=== PATIENT | male | born 1950 | race Caucasian/White ===

== ENCOUNTER 2022-06-06 06:05 | Day surgery (SDC) | payer MEDICARE ==
[2022-06-05 12:50] LABS: BASOPHILS # (AUTO) 0.1 X10'3 (0-0.2); BASOPHILS % (AUTO) 0.9 % (0-1); EOSINOPHILS # (AUTO) 0.1 X10'3 (0-0.9); EOSINOPHILS % (AUTO) 1.3 % (0-6); HEMATOCRIT 45.6 % (42.0-52.0); HEMOGLOBIN 15.9 g/dl (14.0-17.9); LYMPHOCYTES # (AUTO) 1.1 X10'3 (1.1-4.8); LYMPHOCYTES % (AUTO) 13.3 % (21-51); MEAN CORPUSCULAR HEMOGLOBIN 32.1 PG (27.0-31.0); MEAN CORPUSCULAR VOLUME 91.8 FL (78-98); MEAN PLATELET VOLUME 8.1 FL (7.4-10.4); MONOCYTES # (AUTO) 0.6 X10'3 (0-0.9); MONOCYTES % (AUTO) 7.3 % (2-12); NEUTROPHILS # (AUTO) 6.1 X10'3 (1.8-7.7); NEUTROPHILS % (AUTO) 77.2 % (42-75); PLATELET COUNT 257 X10'3 (140-440); RED BLOOD COUNT 4.97 X10'6 (4.70-6.10); RED CELL DISTRIBUTION WIDTH 13.1 % (11.5-14.5); WHITE BLOOD COUNT 7.9 X10'3 (4.5-11.0)
[2022-06-05 12:57] LABS: ALBUMIN 3.9 G/DL (3.4-5.0); ANION GAP 9 (8-16); BLOOD UREA NITROGEN 14 MG/DL (7-18); BUN/CREATININE RATIO 14.7 (5.4-32.0); CALCIUM 9.3 MG/DL (8.5-10.1); CHLORIDE 106 MMOL/L (99-107); CREATININE 0.95 MG/DL (0.60-1.10); GLUCOSE 93 MG/DL (70-104); POTASSIUM 3.9 MMOL/L (3.5-5.1); SODIUM 144 MMOL/L (135-145); TOTAL CARBON DIOXIDE 29.2 MMOL/L (24-32); eGFR 78 ML/MIN
[2022-06-05 13:01] LABS: APTT 27 SECONDS (22-32)
[~2022-06-06] VITALS: Ht 182.9 cm; Wt 81.1 kg
[2022-06-06] VITALS (12 sets, daily range): BP systolic 98–139; BP diastolic 63–99
[2022-06-06] MEDS ORDERED: CARB1TAB42 PO (06:37)
[2022-06-06] MEDS ORDERED: LOTE5DRO9 OP (06:37)
[2022-06-06] MEDS ORDERED: APIX5TAB3 PO (06:37)
[2022-06-06] MEDS ORDERED: BROM3DRO OP (06:37)
[2022-06-06] MEDS ORDERED: LOSA25TA41 PO (06:37)
[2022-06-06] MEDS ORDERED: VITA1CAP PO (06:37)
[2022-06-06] MEDS ORDERED: POLOS OP (06:37)
[2022-06-06] MEDS ORDERED: FINA5TAB11 PO (06:37)
[2022-06-06] MEDS ORDERED: CARB-395 PO (06:37)
[2022-06-06] MEDS ORDERED: fentaNYL/PF 50MCG/1 ML 2ML syringe ONE ×2 (07:28→09:28)
[2022-06-06] MEDS ORDERED: verapamil 2.5 mg/ml inj IV ONE (07:28)
[2022-06-06] MEDS ORDERED: heparin 1,000unit/ml 10ml vial 10 ML ONE (07:28)
[2022-06-06] MEDS ORDERED: nitroGLYCERIN-Tridil 50MG/D5W 250 ML IV ONE (07:28)
[2022-06-06] MEDS ORDERED: midazolam 1 mg/ML 2ml injection ONE (07:28)
[2022-06-06] MEDS ORDERED: iohexol 350MG/ML 100ml bottle IV ONE ×3 (07:28→08:59)
[2022-06-06] MEDS ORDERED: LIDOcaine 1%/PF 5ML 10 MG/ML VIAL ONE ×2 (07:28→08:41)
[2022-06-06 09:16] LABS: ISTAT HGB ART 14.6 g/dl (14.0-18.0); ISTAT Hct ART 43 %PCV (42-52); ISTAT O2 SATURATION ARTERIAL 91 % (95-98); ISTAT SOURCE ART
--- NOTE | 2022-06-06 15:05 | NUR ---
Gave report to Nun[place] RIDLEY, transferred care. Patient stable, VSS. Plan to discharge at 1600.
[2022-06-07 06:26] LABS: ISTAT Hct MIX 43 %PCV (42-52); ISTAT O2 SATURATION MIX VENOUS 69 % (60-80); ISTAT SOURCE VEN
== END 2022-06-06 16:00 | disposition home or self-care (01) ==
LOC: SSTAY O 06:05
PROVIDERS: ATTEND Internal Medicine Cardiovascular Disease
DX: R94.39 Abnormal result of other cardiovascular function study (principal); I25.10 Atherosclerotic heart disease of native coronary artery without angina pectoris; I35.0 Nonrheumatic aortic (valve) stenosis; I48.0 Paroxysmal atrial fibrillation; I10 Essential (primary) hypertension; Z98.890 Other specified postprocedural states; Z90.49 Acquired absence of other specified parts of digestive tract; Z79.899 Other long term (current) drug therapy; G20 Parkinson's disease; F32.9 Major depressive disorder, single episode, unspecified; Z79.82 Long term (current) use of aspirin; F41.9 Anxiety disorder, unspecified; Z88.8 Allergy status to other drugs, medicaments and biological substances; Z88.1 Allergy status to other antibiotic agents; Z87.442 Personal history of urinary calculi
CPT/HCPCS: 36415; 76937; 80048; 82803; 85014; 85025; 85610; 85730; 93005; 93460; 93567; 99152; 99153; C1751; C1760; C1769; C1894; J1644; J2250; J3010; J3490; J7030; Q9967; A4620; A5120; A6258; A6402

== ENCOUNTER 2022-10-16 08:02 | Day surgery (SDC) | payer MEDICARE ==
[2022-10-15 13:00] LABS: BASOPHILS % (AUTO) 0.5 % (0-1); EOSINOPHILS # (AUTO) 0.1 X10'3 (0-0.9); EOSINOPHILS % (AUTO) 2.2 % (0-6); HEMATOCRIT 47.7 % (42.0-52.0); HEMOGLOBIN 15.9 g/dl (14.0-17.9); LYMPHOCYTES # (AUTO) 1.2 X10'3 (1.1-4.8); LYMPHOCYTES % (AUTO) 19.6 % (21-51); MEAN CORPUSCULAR HEMOGLOBIN 31.3 PG (27.0-31.0); MEAN CORPUSCULAR HGB CONC 33.4 g/dL (33.0-36.5); MEAN CORPUSCULAR VOLUME 93.8 FL (78-98); MEAN PLATELET VOLUME 8.3 FL (7.4-10.4); MONOCYTES # (AUTO) 0.5 X10'3 (0-0.9); MONOCYTES % (AUTO) 8.6 % (2-12); NEUTROPHILS # (AUTO) 4.2 X10'3 (1.8-7.7); NEUTROPHILS % (AUTO) 69.1 % (42-75); PLATELET COUNT 243 X10'3 (140-440); RED BLOOD COUNT 5.09 X10'6 (4.70-6.10); RED CELL DISTRIBUTION WIDTH 13.4 % (11.5-14.5); WHITE BLOOD COUNT 6.1 X10'3 (4.5-11.0)
[2022-10-15 13:09] LABS: ALBUMIN 3.6 G/DL (3.4-5.0); ANION GAP 3 (8-16); BLOOD UREA NITROGEN 14 MG/DL (7-18); BUN/CREATININE RATIO 14.3 (5.4-32.0); CALCIUM 8.9 MG/DL (8.5-10.1); CHLORIDE 104 MMOL/L (99-107); CREATININE 0.98 MG/DL (0.60-1.10); GLUCOSE 87 MG/DL (70-104); POTASSIUM 4.4 MMOL/L (3.5-5.1); SODIUM 137 MMOL/L (135-145); TOTAL CARBON DIOXIDE 29.7 MMOL/L (24-32); eGFR 75 ML/MIN
[~2022-10-16] VITALS: Ht 182.9 cm; Wt 83.4 kg
[2022-10-16] VITALS (15 sets, daily range): BP systolic 91–152; BP diastolic 59–108
[~2022-10-16 08:02] MED LIST: APIX5TAB3 PO; BROM3DRO OP; CARB-395 PO; CARB1TAB42 PO; FINA5TAB11 PO; LOSA25TA41 PO; LOTE5DRO9 OP; POLOS OP; VITA1CAP PO
[2022-10-16] MEDS ORDERED: MIDAZolam 1mg/ml 10ml vial IV ONE (08:15)
[2022-10-16] MEDS ORDERED: morphine 10mg/ml inj. IV ONE (08:15)
[2022-10-16] MEDS ORDERED: LORazepam 0.5 MG tablet PO ONE (08:15)
[2022-10-16] MEDS ORDERED: atropine 0.1mg/ml 10ml syringe IV ONE (08:15)
[2022-10-16] MEDS ORDERED: amiodarone 150mg/dext, iso-os 100 ML IV ONE (08:15)
[2022-10-16] MEDS ORDERED: diphenhydrAMINE 25mg capsule PO ONE (08:20)
[2022-10-16] MEDS ORDERED: SOTA80TA PO (08:54)
[2022-10-16] MEDS ORDERED: ondansetron/PF 4mg/2ml inj IV ONE (12:30)
[2022-10-16] MEDS ORDERED: ondansetron/PF 4mg/2ml inj ONE (12:31)
== END 2022-10-16 13:40 | disposition home or self-care (01) ==
LOC: SSTAY O 08:02
PROVIDERS: ATTEND Internal Medicine Cardiovascular Disease
DX: I48.19 Other persistent atrial fibrillation (principal); I35.0 Nonrheumatic aortic (valve) stenosis; I10 Essential (primary) hypertension; G20 Parkinson's disease; F41.9 Anxiety disorder, unspecified; F32.9 Major depressive disorder, single episode, unspecified; Z87.442 Personal history of urinary calculi; Z98.890 Other specified postprocedural states; Z79.899 Other long term (current) drug therapy; I25.10 Atherosclerotic heart disease of native coronary artery without angina pectoris; Z88.1 Allergy status to other antibiotic agents; Z88.8 Allergy status to other drugs, medicaments and biological substances
CPT/HCPCS: 36415; 80048; 85025; 85610; 92960; 93005; J2250; J2274; J2405; J7030; A4620

== ENCOUNTER 2023-12-03 06:14 | Day surgery (SDC) | payer MEDICARE ==
[2023-12-02 15:22] LABS: BASOPHILS % (AUTO) 0.3 % (0-1); EOSINOPHILS # (AUTO) 0.1 X10'3 (0-0.9); EOSINOPHILS % (AUTO) 1.8 % (0-6); HEMATOCRIT 45.2 % (42.0-52.0); HEMOGLOBIN 15.2 g/dl (14.0-17.9); LYMPHOCYTES % (AUTO) 14.6 % (21-51); MEAN CORPUSCULAR HEMOGLOBIN 31.5 PG (27.0-31.0); MEAN CORPUSCULAR HGB CONC 33.7 g/dL (33.0-36.5); MEAN CORPUSCULAR VOLUME 93.7 FL (78-98); MEAN PLATELET VOLUME 7.8 FL (7.4-10.4); MONOCYTES # (AUTO) 0.5 X10'3 (0-0.9); MONOCYTES % (AUTO) 6.5 % (2-12); NEUTROPHILS # (AUTO) 5.5 X10'3 (1.8-7.7); NEUTROPHILS % (AUTO) 76.8 % (42-75); PLATELET COUNT 237 X10'3 (140-440); RED BLOOD COUNT 4.82 X10'6 (4.70-6.10); RED CELL DISTRIBUTION WIDTH 13.6 % (11.5-14.5); WHITE BLOOD COUNT 7.1 X10'3 (4.5-11.0)
[2023-12-02 15:28] LABS: ALBUMIN 3.5 G/DL (3.4-5.0); ANION GAP 5 (8-16); BLOOD UREA NITROGEN 17 MG/DL (7-18); BUN/CREATININE RATIO 12.4 (10.0-20.0); CALCIUM 9.1 MG/DL (8.5-10.1); CHLORIDE 109 MMOL/L (99-107); CREATININE 1.37 MG/DL (0.60-1.10); GLUCOSE 90 MG/DL (70-104); POTASSIUM 4.7 MMOL/L (3.5-5.1); SODIUM 145 MMOL/L (135-145); TOTAL CARBON DIOXIDE 30.9 MMOL/L (24-32); eGFR 51 ML/MIN
[2023-12-02 15:35] LABS: APTT 27 SECONDS (22-32); INR 1.1 INR; PROTHROMBIN TIME 11.5 SECONDS (9.0-12.0)
[2023-12-03] VITALS (14 sets, daily range): BP systolic 118–160; BP diastolic 70–89; PULSE 60; RESP 14–16; TEMP 98; O2SAT 95–99
[~2023-12-03] VITALS: Ht 182.9 cm; Wt 78.8 kg
[~2023-12-03 06:14] MED LIST changes: -BROM3DRO OP; +DOCU100C40 PO; -LOSA25TA41 PO; -LOTE5DRO9 OP; -POLOS OP; +SENN-263 PO; +SOTA80TA PO; +VITA-268 PO; -VITA1CAP PO
[2023-12-03] MEDS ORDERED: DULO30CA52 PO (06:38)
[2023-12-03] MEDS: sodium bicarbonate 1meq/ml syr 150 ML in dextrose 5%-water 1,000 ML IV SCH (07:13)
[2023-12-03] MEDS: diphenhydrAMINE 25mg capsule PO PRN (07:13)
[2023-12-03] MEDS: acetylcysteine 200 MG/ml 4ml vial PO PRN (07:13)
[2023-12-03] MEDS: LORazepam 0.5 MG tablet PO PRN (07:13)
[2023-12-03] MEDS: normal saline 1,000 ML IV SCH (07:13)
[2023-12-03] MEDS ORDERED: iohexol 350 MG/ML 50ML vial IV ONE (07:34)
[2023-12-03] MEDS ORDERED: midazolam 1 mg/ML 2ml injection ONE (07:34)
[2023-12-03] MEDS ORDERED: fentaNYL/PF 50MCG/1 ML 2ML syringe ONE (07:34)
[2023-12-03] MEDS ORDERED: heparin 1,000unit/ml 10ml vial 10 ML ONE (07:34)
[2023-12-03] MEDS ORDERED: LIDOcaine 1% 30ml preserv. free vial ONE (07:34)
[2023-12-03] MEDS ORDERED: iohexol 350MG/ML 100ml bottle IV ONE (07:34)
[2023-12-03] MEDS ORDERED: nitroGLYCERIN 500mcg/5mL D5W 5 ML IV ONE (07:35)
[2023-12-03 12:49] LABS: ISTAT HGB MIX 12.6 g/dl (14.0-17.9); ISTAT Hct MIX 37 %PCV (42-52); ISTAT O2 SATURATION MIX VENOUS 73 % (60-80); ISTAT SOURCE VEN
[2023-12-03 12:49] LABS: ISTAT HGB MIX 14.3 g/dl (14.0-17.9); ISTAT Hct MIX 42 %PCV (42-52); ISTAT O2 SATURATION MIX VENOUS 93 % (60-80); ISTAT SOURCE BLNK
== END 2023-12-03 15:00 | disposition home or self-care (01) ==
LOC: SSTAY O 06:14
PROVIDERS: ATTEND Internal Medicine Cardiovascular Disease
DX: I35.0 Nonrheumatic aortic (valve) stenosis (principal); I25.10 Atherosclerotic heart disease of native coronary artery without angina pectoris; I10 Essential (primary) hypertension; G89.29 Other chronic pain; F41.9 Anxiety disorder, unspecified; N40.0 Benign prostatic hyperplasia without lower urinary tract symptoms; F32.A Depression, unspecified; G20.A1 Parkinson's disease without dyskinesia, without mention of fluctuations; I48.0 Paroxysmal atrial fibrillation; Z98.890 Other specified postprocedural states; Z90.49 Acquired absence of other specified parts of digestive tract; Z79.899 Other long term (current) drug therapy; Z79.01 Long term (current) use of anticoagulants; Z88.1 Allergy status to other antibiotic agents; Z88.8 Allergy status to other drugs, medicaments and biological substances
CPT/HCPCS: 36415; 76937; 80048; 82803; 85014; 85025; 85610; 85730; 93005; 93460; 99152; 99153; J1644; J2250; J3010; J3490; J7030; J7070; Q0163; Q9967; A6258; C1725; C1751; C1769

== ENCOUNTER 2024-01-14 09:49 | Outpatient (CLI) | payer MEDICARE ==
[~2024-01-14 09:49] MED LIST changes: -DOCU100C40 PO; +DULO30CA52 PO; -SENN-263 PO
[2024-01-14 10:21] LABS: BASOPHILS % (AUTO) 0.3 % (0-1); EOSINOPHILS # (AUTO) 0.2 X10'3 (0-0.9); EOSINOPHILS % (AUTO) 2.3 % (0-6); HEMATOCRIT 46.4 % (42.0-52.0); HEMOGLOBIN 15.9 g/dl (14.0-17.9); LYMPHOCYTES # (AUTO) 1.2 X10'3 (1.1-4.8); LYMPHOCYTES % (AUTO) 14.2 % (21-51); MEAN CORPUSCULAR HEMOGLOBIN 32.2 PG (27.0-31.0); MEAN CORPUSCULAR HGB CONC 34.3 g/dL (33.0-36.5); MEAN PLATELET VOLUME 7.8 FL (7.4-10.4); MONOCYTES # (AUTO) 0.6 X10'3 (0-0.9); MONOCYTES % (AUTO) 7.2 % (2-12); NEUTROPHILS # (AUTO) 6.4 X10'3 (1.8-7.7); PLATELET COUNT 255 X10'3 (140-440); RED BLOOD COUNT 4.94 X10'6 (4.70-6.10); RED CELL DISTRIBUTION WIDTH 13.7 % (11.5-14.5); WHITE BLOOD COUNT 8.5 X10'3 (4.5-11.0)
[2024-01-14 10:32] LABS: APTT 30 SECONDS (22-32); INR 1.1 INR; PROTHROMBIN TIME 11.9 SECONDS (9.0-12.0)
[2024-01-14 10:45] LABS: ALBUMIN 3.6 G/DL (3.4-5.0); ALKALINE PHOSPHATASE 100 IU/L (46-116); ANION GAP 3 (8-16); ASPARTATE AMINO TRANSFERASE 15 U/L (10-37); BILIRUBIN,TOTAL 0.9 MG/DL (0.1-1.0); BLOOD UREA NITROGEN 18 MG/DL (7-18); BUN/CREATININE RATIO 18.4 (10.0-20.0); CALCIUM 9.1 MG/DL (8.5-10.1); CHLORIDE 108 MMOL/L (99-107); CREATININE 0.98 MG/DL (0.60-1.10); GLUCOSE 69 MG/DL (70-104); POTASSIUM 4.4 MMOL/L (3.5-5.1); SODIUM 144 MMOL/L (135-145); TOTAL PROTEIN 7.3 G/DL (6.4-8.2); eGFR 75 ML/MIN
[2024-01-14 10:50] LABS: PRO BRAIN NATRIURETIC PEPTIDE 2301 PG/ML (0-125)
[2024-01-14 11:03] LABS: ALANINE AMINOTRANSFERASE < 6 U/L (12-78)
[2024-01-14] MEDS ORDERED: IODIXANOL 320 MG/ML INFUS..BTL 100ML IV ONE (11:28)
== END 2024-01-14 23:59 | disposition home or self-care (01) ==
LOC: RAD 09:49
PROVIDERS: ATTEND Internal Medicine Cardiovascular Disease
DX: R91.1 Solitary pulmonary nodule (principal); J90 Pleural effusion, not elsewhere classified; I35.0 Nonrheumatic aortic (valve) stenosis; R06.02 Shortness of breath; I65.29 Occlusion and stenosis of unspecified carotid artery; Z95.0 Presence of cardiac pacemaker
CPT/HCPCS: 36415; 71046; 71275; 74174; 75572; 80053; 83880; 85025; 85610; 85730; 93880; 94010; 94727; 94729; J3490; Q9967

== ENCOUNTER 2024-07-27 22:15 | Inpatient (IN) | payer MEDICARE ==
[~2024-07-27] VITALS: Ht 182.9 cm; Wt 75.9 kg
[~2024-07-27 22:15] MED LIST changes: -CARB-395 PO; +[UNRECOGNIZED DRUG - CODE] PO
[2024-07-27 23:07] LABS: BASOPHILS % (AUTO) 0.1 % (0-1); EOSINOPHILS # (AUTO) 0.1 X10'3 (0-0.9); EOSINOPHILS % (AUTO) 0.7 % (0-6); HEMOGLOBIN 15.7 g/dl (14.0-17.9); LYMPHOCYTES # (AUTO) 0.7 X10'3 (1.1-4.8); LYMPHOCYTES % (AUTO) 7.2 % (21-51); MEAN CORPUSCULAR HGB CONC 34.1 g/dL (33.0-36.5); MEAN CORPUSCULAR VOLUME 93.6 FL (78-98); MEAN PLATELET VOLUME 8.1 FL (7.4-10.4); MONOCYTES # (AUTO) 0.5 X10'3 (0-0.9); NEUTROPHILS # (AUTO) 8.4 X10'3 (1.8-7.7); PLATELET COUNT 194 X10'3 (140-440); RED BLOOD COUNT 4.91 X10'6 (4.70-6.10); RED CELL DISTRIBUTION WIDTH 14.3 % (11.5-14.5); WHITE BLOOD COUNT 9.6 X10'3 (4.5-11.0)
[2024-07-27 23:20] LABS: ALANINE AMINOTRANSFERASE 10 U/L (12-78); ALBUMIN 3.7 G/DL (3.4-5.0); ALKALINE PHOSPHATASE 110 IU/L (46-116); ANION GAP 5 (8-16); ASPARTATE AMINO TRANSFERASE 16 U/L (10-37); BILIRUBIN,TOTAL 1.7 MG/DL (0.1-1.0); BLOOD UREA NITROGEN 24 MG/DL (7-18); BUN/CREATININE RATIO 19.5 (10.0-20.0); CALCIUM 9.5 MG/DL (8.5-10.1); CHLORIDE 104 MMOL/L (99-107); CREATININE 1.23 MG/DL (0.60-1.10); GLUCOSE 129 MG/DL (70-104); LIPASE 22 U/L (16-77); POTASSIUM 4.2 MMOL/L (3.5-5.1); SODIUM 139 MMOL/L (135-145); TOTAL CARBON DIOXIDE 29.9 MMOL/L (24-32); TOTAL PROTEIN 7.5 G/DL (6.4-8.2); eCRCL 56 ML/MIN; eGFR 57 ML/MIN
[2024-07-28] MEDS ORDERED: iohexol 350MG/ML 100ml bottle IV ONE (00:12)
[2024-07-28] MEDS: fentaNYL/PF 50MCG/1 ML 2ML syringe IV ONE (00:34)
[2024-07-28] MEDS: ondansetron/PF 4mg/2ml inj IV ONE (00:34)
[2024-07-28] MEDS: normal saline 1000ml 1,000 ML IV ONE (00:34)
[2024-07-28] MEDS: morphine 4 MG/ML inj SYRINge IV ONE (02:10)
[2024-07-28] MEDS ORDERED: morphine 2 MG/ML inj. syringe IV PRN (03:00)
[2024-07-28] MEDS ORDERED: HYDROmorphone inj. 0.5 MG/0.5 ML DISP.SYRIN IV PRN (03:00)
[2024-07-28] MEDS ORDERED: potassium Cl 40MEQ/1/2NS 520ml 520 ML IV PRN (03:00)
[2024-07-28] MEDS ORDERED: mag hydrox/Alum hydrox/simeth 30ml oral suspension PO PRN (03:00)
[2024-07-28] MEDS ORDERED: magnesium Cl slow-release 64mg tablet PO PRN (03:00)
[2024-07-28] MEDS ORDERED: potassium Cl 20 mEq SR tablet PO PRN ×2 (03:00)
[2024-07-28] MEDS ORDERED: magnesium hydroxide 30ml (MOM) UD suspension PO PRN (03:00)
[2024-07-28] MEDS ORDERED: ondansetron/PF 4mg/2ml inj IV PRN (03:00)
[2024-07-28] MEDS ORDERED: magnesium sulf-water 2g/50mL 50 ML IV PRN (03:00)
[2024-07-28] MEDS ORDERED: magnesium sulf-water 4G/100mL 100 ML IV PRN (03:00)
[2024-07-28] MEDS ORDERED: acetaminophen 325mg tablet PO PRN (03:00)
[2024-07-28 03:52] LABS: MAGNESIUM 1.9 MG/DL (1.5-2.4); POTASSIUM 4.3 MMOL/L (3.5-5.1)
[2024-07-28 03:53] LABS: APTT 27 SECONDS (22-32); INR 1.1 INR; PROTHROMBIN TIME 11.7 SECONDS (9.0-12.0)
[2024-07-28] MEDS: normal saline 1000ml 1,000 ML IV SCH (04:09)
[2024-07-28 05:50] LABS: BILIRUBIN,URINE NEGATIVE (Neg); CLARITY,URINE CLEAR (Clear); COLOR,URINE YELLOW (Yellow); GLUCOSE, URINE NEGATIVE (Neg); KETONES,URINE TRACE mg/dl (Neg); LEUKOCYTE ESTERASE ,URINE NEGATIVE (Neg); NITRITES, URINE NEGATIVE (Neg); OCCULT BLOOD,URINE NEGATIVE (Neg); PH,URINE 5.5 (4.8-8.0); PROTEIN,URINE NEGATIVE (Neg); UROBILINOGEN,URINE 0.2 E.U/dL (0.2-1.0)
[2024-07-28 05:51] LABS: UA COLLECTION TYPE CLN CATCH MIDSTREAM
[2024-07-28] MEDS: K and/or MAG REPLACEMENT MC SCH (07:09)
[2024-07-28] MEDS: docusate sod 100mg capsule PO SCH (07:10)
[2024-07-28] MEDS: CefTRIAXone/D5W-Rocephin 1gm 50 ML IV SCH (07:28)
[2024-07-28] MEDS: LidoCAINE 2% Topical Jelly 11mL syringe (UROJET) MM ONE (09:10)
[2024-07-28 11:00] VITALS: RESP 16; O2SAT 95
[2024-07-28 22:00] VITALS: BP 136/89; PULSE 84; RESP 16; TEMP 98.4; O2SAT 98
[2024-07-28] MEDS: diatr meglu/diatrizoate 30ml oral sol.-(3 dose) bottle PO SCH (23:00)
[2024-07-29] VITALS (7 sets, daily range): BP systolic 126–163; BP diastolic 83–106; PULSE 75–76; RESP 14–20; TEMP 97.8–98.3; O2SAT 95–98
[2024-07-29 07:01] LABS: ALANINE AMINOTRANSFERASE 20 U/L (12-78); ALBUMIN 3.1 G/DL (3.4-5.0); ALBUMIN/GLOBULIN RATIO 0.9 (1.1-1.5); ALKALINE PHOSPHATASE 89 IU/L (46-116); ANION GAP 6 (8-16); ASPARTATE AMINO TRANSFERASE 19 U/L (10-37); BILIRUBIN,TOTAL 1.7 MG/DL (0.1-1.0); BLOOD UREA NITROGEN 19 MG/DL (7-18); BUN/CREATININE RATIO 21.1 (10.0-20.0); CALCIUM 9.1 MG/DL (8.5-10.1); CHLORIDE 107 MMOL/L (99-107); CHOL/HDL RATIO 2.2 (0.00-4.99); CHOLESTEROL 132 MG/DL (0-200); GLUCOSE 76 MG/DL (70-104); HDL CHOLESTEROL 60 MG/DL (35-60); LDL CHOLESTEROL 71 MG/DL (50-100); MAGNESIUM 1.9 MG/DL (1.5-2.4); POTASSIUM 3.8 MMOL/L (3.5-5.1); SODIUM 141 MMOL/L (135-145); TOTAL CARBON DIOXIDE 27.9 MMOL/L (24-32); TOTAL PROTEIN 6.6 G/DL (6.4-8.2); TRIGLYCERIDES 51 MG/DL (20-135); eCRCL 76 ML/MIN; eGFR 82 ML/MIN
[2024-07-29 07:12] LABS: BASOPHILS % (AUTO) 0.3 % (0-1); EOSINOPHILS # (AUTO) 0.2 X10'3 (0-0.9); EOSINOPHILS % (AUTO) 3.9 % (0-6); HEMATOCRIT 42.7 % (42.0-52.0); HEMOGLOBIN 14.7 g/dl (14.0-17.9); LYMPHOCYTES # (AUTO) 1.7 X10'3 (1.1-4.8); MEAN CORPUSCULAR HEMOGLOBIN 33.1 PG (27.0-31.0); MEAN CORPUSCULAR HGB CONC 34.5 g/dL (33.0-36.5); MONOCYTES # (AUTO) 0.4 X10'3 (0-0.9); MONOCYTES % (AUTO) 7.9 % (2-12); NEUTROPHILS # (AUTO) 3.2 X10'3 (1.8-7.7); NEUTROPHILS % (AUTO) 57.9 % (42-75); PLATELET COUNT 191 X10'3 (140-440); RED BLOOD COUNT 4.45 X10'6 (4.70-6.10); RED CELL DISTRIBUTION WIDTH 14.3 % (11.5-14.5); WHITE BLOOD COUNT 5.6 X10'3 (4.5-11.0)
[2024-07-29] MEDS: carbidoba-levodopa 25-100mg tablet PO SCH (10:10)
[2024-07-29] MEDS: metoprolol succinate 25mg (24-HOUR) SR. Tablet PO SCH (11:08)
[2024-07-29] MEDS ORDERED: ondansetron 4mg rapidly disintigrating tab PO PRN (15:20)
[2024-07-29] MEDS ORDERED: sotalol HCl 40mg (1/2 tablet) PO SCH (20:00)
[2024-07-29] MEDS: carbidopa/levodopa 50/200mg CR tablet PO SCH (20:13)
[2024-07-29] MEDS: sotalol HCl 40mg (1/2 tablet) PO SCH (20:13)
[2024-07-30 06:00] VITALS: BP 134/83; PULSE 77; RESP 16; TEMP 97.4; O2SAT 99
[2024-07-30 07:40] LABS: BASOPHILS % (AUTO) 0.4 % (0-1); EOSINOPHILS # (AUTO) 0.2 X10'3 (0-0.9); EOSINOPHILS % (AUTO) 3.4 % (0-6); HEMATOCRIT 37.4 % (42.0-52.0); HEMOGLOBIN 12.7 g/dl (14.0-17.9); LYMPHOCYTES # (AUTO) 1.4 X10'3 (1.1-4.8); MEAN CORPUSCULAR HEMOGLOBIN 32.2 PG (27.0-31.0); MEAN CORPUSCULAR HGB CONC 33.9 g/dL (33.0-36.5); MEAN PLATELET VOLUME 8.7 FL (7.4-10.4); MONOCYTES # (AUTO) 0.4 X10'3 (0-0.9); MONOCYTES % (AUTO) 8.2 % (2-12); NEUTROPHILS # (AUTO) 3.1 X10'3 (1.8-7.7); PLATELET COUNT 186 X10'3 (140-440); RED BLOOD COUNT 3.93 X10'6 (4.70-6.10); RED CELL DISTRIBUTION WIDTH 13.6 % (11.5-14.5); WHITE BLOOD COUNT 5.1 X10'3 (4.5-11.0)
[2024-07-30 07:43] LABS: ALBUMIN 2.7 G/DL (3.4-5.0); ALBUMIN/GLOBULIN RATIO 0.9 (1.1-1.5); ALKALINE PHOSPHATASE 75 IU/L (46-116); ANION GAP 5 (8-16); ASPARTATE AMINO TRANSFERASE 16 U/L (10-37); BILIRUBIN,TOTAL 0.9 MG/DL (0.1-1.0); BLOOD UREA NITROGEN 17 MG/DL (7-18); BUN/CREATININE RATIO 18.3 (10.0-20.0); CALCIUM 8.8 MG/DL (8.5-10.1); CHLORIDE 106 MMOL/L (99-107); CREATININE 0.93 MG/DL (0.60-1.10); GLUCOSE 99 MG/DL (70-104); MAGNESIUM 1.8 MG/DL (1.5-2.4); POTASSIUM 3.7 MMOL/L (3.5-5.1); SODIUM 141 MMOL/L (135-145); TOTAL CARBON DIOXIDE 29.9 MMOL/L (24-32); TOTAL PROTEIN 5.8 G/DL (6.4-8.2); eCRCL 74 ML/MIN; eGFR 79 ML/MIN
[2024-07-30 07:44] LABS: ALANINE AMINOTRANSFERASE < 6 U/L (12-78)
[2024-07-30] MEDS: duloxetine 30mg CAPSULE.DR PO SCH (07:49)
[2024-07-30 07:51] VITALS: BP_SYST 153; PULSE 75
[2024-07-30] MEDS: sotalol HCl 40mg (1/2 tablet) PO SCH (07:51)
== END 2024-07-30 10:10 | disposition home or self-care (01) | DRG 388 ==
LOC: ER 22:16 → ED HOLD 07-28 03:05 → ORTHO 4S 07-28 10:56
PROVIDERS: ADMIT Internal Medicine Critical Care Medicine; ATTEND Family Medicine
PROC: B4201ZZ Computerized Tomography (CT Scan) of Abdominal Aorta using Low Osmolar Contrast (ICD-10-PCS; principal; 2024-07-28)
PROC: B4241ZZ Computerized Tomography (CT Scan) of Superior Mesenteric Artery using Low Osmolar Contrast (ICD-10-PCS; 2024-07-28)
PROC: B4281ZZ Computerized Tomography (CT Scan) of Bilateral Renal Arteries using Low Osmolar Contrast (ICD-10-PCS; 2024-07-28)
PROC: B42C1ZZ Computerized Tomography (CT Scan) of Pelvic Arteries using Low Osmolar Contrast (ICD-10-PCS; 2024-07-28)
PROC: B4211ZZ Computerized Tomography (CT Scan) of Celiac Artery using Low Osmolar Contrast (ICD-10-PCS; 2024-07-28)
DX: K56.7 Ileus, unspecified (principal); N17.0 Acute kidney failure with tubular necrosis; G20.A1 Parkinson's disease without dyskinesia, without mention of fluctuations; K86.89 Other specified diseases of pancreas; N40.0 Benign prostatic hyperplasia without lower urinary tract symptoms; I48.91 Unspecified atrial fibrillation; Z88.8 Allergy status to other drugs, medicaments and biological substances; Z79.01 Long term (current) use of anticoagulants; Z79.899 Other long term (current) drug therapy; Z90.49 Acquired absence of other specified parts of digestive tract
CPT/HCPCS: 36415; 74018; 74174; 74176; 80053; 80061; 81003; 83690; 83735; 84132; 84484; 85025; 85610; 85730; 93005; 96374; 96375; 99285; G0378; J0696; J2270; J2405; J3010; J7030; Q9963; Q9967

== ENCOUNTER 2024-09-22 07:25 | Day surgery (SDC) | payer MEDICARE ==
[2024-09-21 15:51] LABS: BASOPHILS % (AUTO) 0.4 % (0-1); EOSINOPHILS # (AUTO) 0.1 X10'3 (0-0.9); EOSINOPHILS % (AUTO) 1.5 % (0-6); HEMATOCRIT 44.9 % (42.0-52.0); HEMOGLOBIN 15.4 g/dl (14.0-17.9); LYMPHOCYTES # (AUTO) 0.9 X10'3 (1.1-4.8); LYMPHOCYTES % (AUTO) 14.1 % (21-51); MEAN CORPUSCULAR HEMOGLOBIN 32.6 PG (27.0-31.0); MEAN CORPUSCULAR HGB CONC 34.4 g/dL (33.0-36.5); MEAN PLATELET VOLUME 8.2 FL (7.4-10.4); MONOCYTES # (AUTO) 0.4 X10'3 (0-0.9); MONOCYTES % (AUTO) 6.1 % (2-12); NEUTROPHILS # (AUTO) 5.1 X10'3 (1.8-7.7); NEUTROPHILS % (AUTO) 77.9 % (42-75); PLATELET COUNT 208 X10'3 (140-440); RED BLOOD COUNT 4.73 X10'6 (4.70-6.10); WHITE BLOOD COUNT 6.5 X10'3 (4.5-11.0)
[2024-09-21 16:08] LABS: INR 1.2 INR; PROTHROMBIN TIME 12.1 SECONDS (9.0-12.0)
[2024-09-21 16:20] LABS: ALBUMIN 3.8 G/DL (3.4-5.0); ANION GAP 6 (8-16); BLOOD UREA NITROGEN 20 MG/DL (7-18); BUN/CREATININE RATIO 19.4 (10.0-20.0); CHLORIDE 105 MMOL/L (99-107); CREATININE 1.03 MG/DL (0.60-1.10); GLUCOSE 91 MG/DL (70-104); POTASSIUM 4.4 MMOL/L (3.5-5.1); SODIUM 141 MMOL/L (135-145); TOTAL CARBON DIOXIDE 30.1 MMOL/L (24-32); eGFR 70 ML/MIN
[~2024-09-22] VITALS: Ht 182.9 cm; Wt 76.1 kg
[2024-09-22] VITALS (12 sets, daily range): BP systolic 128–153; BP diastolic 75–98; PULSE 70–78; RESP 11–16; TEMP 97.9; O2SAT 97–99
[~2024-09-22 07:25] MED LIST changes: +CARB-491 PO; -FINA5TAB11 PO; -VITA-268 PO; -[UNRECOGNIZED DRUG - CODE] PO
[2024-09-22] MEDS ORDERED: atropine 0.1mg/ml 10ml syringe IV ONE (07:45)
[2024-09-22] MEDS ORDERED: LORazepam 0.5 MG tablet PO ONE (07:45)
[2024-09-22] MEDS ORDERED: amiodarone 150mg/dext, iso-os 100 ML IV ONE (07:45)
[2024-09-22] MEDS ORDERED: diphenhydrAMINE 25mg capsule PO ONE (07:45)
[2024-09-22] MEDS ORDERED: LOSA25TA41 PO (09:03)
[2024-09-22] MEDS: MIDAZolam 1mg/ml 10ml vial IV ONE (12:02)
[2024-09-22] MEDS: morphine 10mg/ml inj. IV ONE (12:03)
[2024-09-22] MEDS: normal saline 1000ml 1,000 ML IV SCH (12:03)
== END 2024-09-22 12:05 | disposition home or self-care (01) ==
LOC: SSTAY O 07:25
PROVIDERS: ATTEND Internal Medicine Cardiovascular Disease
DX: I48.0 Paroxysmal atrial fibrillation (principal); I44.7 Left bundle-branch block, unspecified; I49.5 Sick sinus syndrome; I10 Essential (primary) hypertension; I25.10 Atherosclerotic heart disease of native coronary artery without angina pectoris; I35.0 Nonrheumatic aortic (valve) stenosis; F41.9 Anxiety disorder, unspecified; F32.A Depression, unspecified; Z87.442 Personal history of urinary calculi; Z79.01 Long term (current) use of anticoagulants; Z79.899 Other long term (current) drug therapy; Z90.49 Acquired absence of other specified parts of digestive tract; Z95.2 Presence of prosthetic heart valve; Z95.0 Presence of cardiac pacemaker; Z98.890 Other specified postprocedural states; Z88.8 Allergy status to other drugs, medicaments and biological substances
CPT/HCPCS: 36415; 80048; 85025; 85610; 92960; 93005; J2250; J2270; J7030; Z7610; J2274